=== PATIENT | male | born 1965 | race Caucasian/White ===

== ENCOUNTER 2016-11-19 10:04 | Emergency (ER) | payer OTHER ==
[~2016-11-19] VITALS: Ht 193 cm; Wt 121.8 kg
[~2016-11-19 10:04] MED LIST: ASPI81TA21 PO; CALC600T14 PO; CHOL100027 PO; IBUP-1428 PO
[2016-11-19 10:07] VITALS: Ht 193 cm; Wt 121.8 kg
[2016-11-19] MEDS ORDERED: TADA5TAB11 PO (11:03)
[2016-11-19 11:30] LABS: BASO % 0.7 %; BASO ABS # 0.03 K/uL (0-0.2); COMPLETE YES; HEMATOCRIT 40.2 % (42-52); LYMPH % 28.7 %; LYMPH ABS # 1.21 K/uL (1.2-3.4); MEAN CELL VOLUME 79.9 fL (80-100); MEAN CORPUSCULAR HEMOGLOBIN 28.2 pg (25-34); MEAN CORPUSCULAR HGB CONC 35.3 g/dl (32-36); MEAN PLATELET VOLUME 9.5 fL (7.4-10.4); MONO % 15.4 %; NEUT % 50.2 %; PLATELET COUNT 183 K/uL (130-400); RED BLOOD COUNT 5.03 M/uL (4.7-6.1); WHITE BLOOD COUNT 4.21 K/uL (4.8-10.8)
[2016-11-19] MEDS ORDERED: SODIUM CHLORIDE 0.9% 1000ML 1,000 ML IV STA (11:30)
[2016-11-19] MEDS ORDERED: OPTIRAY 320 IV PRN (11:30)
[2016-11-19 11:54] LABS: BLOOD UREA NITROGEN 15 mg/dl (7-18); BUN/CREATININE RATIO 15.5 (10-20); CALCIUM 8.7 mg/dl (8.5-10.1); CARBON DIOXIDE 27 mmol/L (21-32); CHLORIDE 106 mmol/L (98-107); CREATININE 0.99 mg/dl (0.60-1.40); GLUCOSE 84 mg/dl (70-99); POTASSIUM 3.6 mmol/L (3.5-5.1); SODIUM 141 mmol/L (136-145)
[2016-11-19 11:56] LABS: ALKALINE PHOSPHATASE 46 U/L (45-117); ALT/SGPT 30 U/L (12-78); AST/SGOT 20 U/L (15-37)
--- NOTE | 2016-11-19 13:31 | DIAGNOSTIC IMAGING REPORT ---
ABDOMEN AND PELVIS CT WITH IV CONTRAST CT DOSE: 1119.04 mGy.cm HISTORY: nausea, difficulty with BM, distended. ?obs, enteritis TECHNIQUE: Multiaxial CT images of the abdomen and pelvis were performed following the use of intravenous contrast. COMPARISON STUDY: None. FINDINGS: Groundglass opacities within the lungs posteriorly favor mild dependent change. There are trace bilateral pleural effusions. No pneumoperitoneum. No pneumatosis. There are few small sclerotic foci within the sacrum and left posterior iliac bone. These favor bone islands. Small hiatus hernia. The liver, gallbladder, adrenal glands, and pancreas are unremarkable. Small hiatus hernia. There are few subcentimeter hypodense lesions within the kidneys with the largest in the right kidney measuring 9 mm. These are too small to characterize. There are few punctate bilateral renal calculi. No right-sided hydronephrosis. Mild fullness within the left renal collecting system without gaurav hydronephrosis. The ureters are normal in course and caliber. The bladder is unremarkable. No bowel wall thickening or obstruction. Normal appendix. The spleen is enlarged measuring 15 cm in length. No retroperitoneal lymphadenopathy. Within the left central mesentery there is a slightly heterogeneous well-circumscribed 7.5 x 7.0 cm soft tissue mass. This is surrounded by a few loops of small bowel. However, this does not result in an obstruction. IMPRESSION: 1. Within the left central mesentery there is a slightly heterogeneous well-circumscribed 7.5 x 7.0 cm soft tissue mass. This could represent a GI stromal tumor versus an enlarged lymph node. Surgical consultation is recommended for further evaluation. 2. Splenomegaly. 3. Trace bilateral pleural effusions. 4. Bilateral nephrolithiasis. There is mild fullness within the left renal collecting system without hydronephrosis. There are no ureteral calculi. Electronically signed by: Fransico Walker M.D. 11/19/2016 1:30 PM Dictated Date/Time: 11/19/2016 1:17 PM
[2016-11-19 13:58] LABS: URINE APPEARANCE CLEAR (CLEAR); URINE BILIRUBIN NEG (NEG); URINE COLOR YELLOW; URINE EPITHELIAL CELL AUTO 0-5 /lpf (0-5); URINE NITRITE NEG (NEG); URINE SPECIFIC GRAVITY > 1.045 (1.000-1.030); UROBILINOGEN NEG (NEG); ZZUR CULT IF INDIC CLEAN CATCH NO
[2016-11-19 14:00] LABS: MANUAL MICROSCOPIC REQUIRED? NO; REVIEW REQ? NO
[2016-11-19 15:24] VITALS: BP 161/90; PULSE 85; TEMP 36.7; O2SAT 96
--- NOTE | 2016-11-19 17:24 | EMERGENCY ROOM VISIT NOTE ---
History Report prepared by Irena: Yadira Aguilar Under the Supervision of: Dr. Tanvir Downey M.D. First contact with patient: 10:57 Chief Complaint: GI ASSESSMENT Stated Complaint: BOWEL BLOCKAGE Nursing Triage Summary: Pt c/o n/v since Saturday. Distended and bloated when he eats. c/o constipation and diarrhea. Went to [employer], concerned about blockage. History of Present Illness The patient is a 51 year old male who presents to the Emergency Room with complaints of persistent lower abdominal pain which started 3 days ago. It does not radiate through his back. He reports that he vomited on Saturday which concerned him. He reports that he felt better on Saturday and tried to eat, but ended up distended and uncomfortable. He called a [facility] nurse yesterday who suggested that he visit an urgent care. Upon visiting urgent care, they suggested he visit the ED. The patient reports that he had a bowel movement upon arrival to the ED and now feels less discomfort. He reports that he experienced nausea, diarrhea, fever, and chills throughout the weekend. He reports that he is currently not feeling any nausea and feels hungry. He denies having had any abdominal surgeries before. He states that he has had no sick contacts or international travel. Pt denies LOC, headache, diaphoresis, visual changes, neck pain, chest pain, breathing difficulties, back pain, melena, hematochezia, urinary symptoms, numbness, weakness, lymphadenopathy, rash, or other complaints. Source of History: patient Onset: 3 days ago Position: abdomen (lower) Timing: other (persistent) Modifying Factors (Relieving): defecation Associated Symptoms: + chills, + diarrhea, + fevers, + nausea Review of Systems See HPI for pertinent positives and negatives. A total of ten systems were reviewed and were otherwise negative. Past Medical & Surgical Medical Problems: (1) Sciatica Family History Cancer Diabetes mellitus Heart disease Social History Smoking Status: Never Smoker Marital Status: Occupation Status: employed Current/Historical Medications Scheduled Tadalafil (Cialis), 5 MG PO UD Allergies Coded Allergies: No Known Allergies (Unverified , 11/19/16) Physical Exam Vital Signs Date Time Temp Pulse Resp B/P Pulse Ox O2 Delivery O2 Flow Rate FiO2 11/19/16 15:24 36.7 85 20 161/90 96 2/20/17 13:10 72 16 164/91 98 Room Air 11/19/16 12:09 70 11/19/16 11:41 66 20 151/98 98 Room Air 11/19/16 10:07 37.3 76 18 137/90 97 Room Air Physical Exam GENERAL: Awake, alert, well-appearing, in no distress HENT: Normocephalic, atraumatic. Oropharynx unremarkable. EYES: Normal conjunctiva. Sclera non-icteric. NECK: Supple. No nuchal rigidity. FROM. No JVD. RESPIRATORY: Clear to auscultation. CARDIAC: Regular rate, normal rhythm. Extremities warm and well perfused. Pulses equal. ABDOMEN: Soft, non-distended. LLQ tenderness to palpation. No rebound or guarding. No masses. RECTAL: Deferred. MUSCULOSKELETAL: Chest examination reveals no tenderness. The back is symmetrical on inspection without obvious abnormality. There is no CVA tenderness to palpation. No joint edema. LOWER EXTREMITIES: Calves are equal size bilaterally and non-tender. No edema. No discoloration. NEURO: Normal sensorium. No sensory or motor deficits noted. SKIN: No rash or jaundice noted. Medical Decision & Procedures ER Provider Diagnostic Interpretation: Radiology results as stated below per my review and radiologist interpretation. ABDOMEN AND PELVIS CT WITH IV CONTRAST CT DOSE: 1119.04 mGy.cm HISTORY: nausea, difficulty with BM, distended. ?obs, enteritis TECHNIQUE: Multiaxial CT images of the abdomen and pelvis were performed following the use of intravenous contrast. COMPARISON STUDY: None. FINDINGS: Groundglass opacities within the lungs posteriorly favor mild dependent change. There are trace bilateral pleural effusions. No pneumoperitoneum. No pneumatosis. There are few small sclerotic foci within the sacrum and left posterior iliac bone. These favor bone islands. Small hiatus hernia. The liver, gallbladder, adrenal glands, and pancreas are unremarkable. Small hiatus hernia. There are few subcentimeter hypodense lesions within the kidneys with the largest in the right kidney measuring 9 mm. These are too small to characterize. There are few punctate bilateral renal calculi. No right-sided hydronephrosis. Mild fullness within the left renal collecting system without gaurav hydronephrosis. The ureters are normal in course and caliber. The bladder is unremarkable. No bowel wall thickening or obstruction. Normal appendix. The spleen is enlarged measuring 15 cm in length. No retroperitoneal lymphadenopathy. Within the left central mesentery there is a slightly heterogeneous well-circumscribed 7.5 x 7.0 cm soft tissue mass. This is surrounded by a few loops of small bowel. However, this does not result in an obstruction. IMPRESSION: 1. Within the left central mesentery there is a slightly heterogeneous well-circumscribed 7.5 x 7.0 cm soft tissue mass. This could represent a GI stromal tumor versus an enlarged lymph node. Surgical consultation is recommended for further evaluation. 2. Splenomegaly. 3. Trace bilateral pleural effusions. 4. Bilateral nephrolithiasis. There is mild fullness within the left renal collecting system without hydronephrosis. There are no ureteral calculi. Electronically signed by: Fransico Walker M.D. 11/19/2016 1:30 PM Dictated Date/Time: 11/19/2016 1:17 PM Laboratory Results 11/19/16 11:14 Red Blood Count 5.03, Mean Corpuscular Volume 79.9, Mean Corpuscular Hemoglobin 28.2, Mean Corpuscular Hemoglobin Concent 35.3, Mean Platelet Volume 9.5, Neutrophils (%) (Auto) 50.2, Lymphocytes (%) (Auto) 28.7, Monocytes (%) (Auto) 15.4, Eosinophils (%) (Auto) 5.0, Basophils (%) (Auto) 0.7, Neutrophils # (Auto ) 2.11, Lymphocytes # (Auto) 1.21, Monocytes # (Auto) 0.65, Eosinophils # (Auto ) 0.21, Basophils # (Auto) 0.03 11/19/16 11:14 Test 11/19/16 11:14 11/19/16 13:05 White Blood Count 4.21 K/uL (4.8-10.8) Red Blood Count 5.03 M/uL (4.7-6.1) Hemoglobin 14.2 g/dL (14.0-18.0) Hematocrit 40.2 % (42-52) Mean Corpuscular Volume 79.9 fL (80-100) Mean Corpuscular Hemoglobin 28.2 pg (25-34) Mean Corpuscular Hemoglobin Concent 35.3 g/dl (32-36) Platelet Count 183 K/uL (130-400) Mean Platelet Volume 9.5 fL (7.4-10.4) Neutrophils (%) (Auto) 50.2 % Lymphocytes (%) (Auto) 28.7 % Monocytes (%) (Auto) 15.4 % Eosinophils (%) (Auto) 5.0 % Basophils (%) (Auto) 0.7 % Neutrophils # (Auto) 2.11 K/uL (1.4-6.5) Lymphocytes # (Auto) 1.21 K/uL (1.2-3.4) Monocytes # (Auto) 0.65 K/uL (0.11-0.59) Eosinophils # (Auto) 0.21 K/uL (0-0.5) Basophils # (Auto) 0.03 K/uL (0-0.2) RDW Standard Deviation 41.5 fL (36.4-46.3) RDW Coefficient of Variation 14.3 % (11.5-14.5) Immature Granulocyte % (Auto) 0.0 % Immature Granulocyte # (Auto) 0.00 K/uL (0.00-0.02) Anion Gap 8.0 mmol/L (3-11) Est Creatinine Clear Calc Drug Dose 125.8 ml/min Estimated GFR () 101.8 Estimated GFR (Non- 87.8 BUN/Creatinine Ratio 15.5 (10-20) Calcium Level 8.7 mg/dl (8.5-10.1) Total Bilirubin 0.5 mg/dl (0.2-1) Direct Bilirubin < 0.1 mg/dl (0-0.2) Aspartate Amino Transf (AST/SGOT) 20 U/L (15-37) Alanine Aminotransferase (ALT/SGPT) 30 U/L (12-78) Alkaline Phosphatase 46 U/L (45-117) Total Protein 7.4 gm/dl (6.4-8.2) Albumin 3.7 gm/dl (3.4-5.0) Lipase 120 U/L (73-393) Urine Color YELLOW Urine Appearance CLEAR (CLEAR) Urine pH 7.0 (4.5-7.5) Urine Specific Halfway > 1.045 (1.000-1.030) Urine Protein NEG (NEG) Urine Glucose (UA) NEG (NEG) Urine Ketones NEG (NEG) Urine Occult Blood 1+ (NEG) Urine Nitrite NEG (NEG) Urine Bilirubin NEG (NEG) Urine Urobilinogen NEG (NEG) Urine Leukocyte Esterase NEG (NEG) Urine WBC (Auto) 1-5 /hpf (0-5) Urine RBC (Auto) 0-4 /hpf (0-4) Urine Hyaline Casts (Auto) 0 /lpf (0-5) Urine Epithelial Cells (Auto) 0-5 /lpf (0-5) Urine Bacteria (Auto) NEG (NEG) Laboratory results reviewed by me Medications Administered Medications (Trade) Dose Ordered Sig/Jia Route Start Time Stop Time Status Last Admin Dose Admin Sodium Chloride (Nss 1000ml) 1,000 ml @ 999 mls/hr Q1H1M STAT IV 11/19/16 11:30 11/19/16 12:30 DC 11/19/16 11:44 999 MLS/HR ED Course 1126: The patient was evaluated in room C11. A complete history and physical exam was performed. 1130: Ordered NSS 1000 ml @ 999 mls/hr IV. 1337: I discussed the patient's case with Dr. Vance, General Surgery. He will look at the CT and call back. 1345: I spoke with Dr. aVnce. He recommends I consult with surgical oncology at [facility]. 1348: I reevaluated the patient. 1402: I spoke with Dr. Ovalle, [facility] Surgical Oncology. 1424: I spoke with Dr. Razo, [facility] Gastroenterology. The patient can follow in the office. 1432: I reevaluated the patient. Discussed results and discharge instructions: He verbalized understanding and agreement. The patient is ready for discharge. Medical Decision Triage Nursing notes reviewed. The patient's presentation and history were concerning for GI symptoms and abdominal bloating. Etiologies such as appendicitis, diverticulitis, obstruction, inflammatory bowel disease, renal colic, PUD, biliary pathology, pancreatitis, mesenteric ischemia, aortic pathology, infections, genitourinary, UTI, perforated viscus, as well as others were entertained. The patient was evaluated. He had some mild left lower tenderness. Clinically he was doing well. He did have a bowel movement that felt normal to him and his distention was improved with this upon arrival. The patient had an unremarkable CBC and chemistry panel. Urinalysis LFTs and lipase were unremarkable as well. CT imaging revealed the findings above. The patient had a sizable tumor noted in the abdomen. I discussed this with Dr. Vance general surgery. He recommended consultation with surgical pathology at [place]. I did discuss this with the patient and he was in agreement. I did discuss the case with Dr. Bentley. She asked if GI could be consulted for possible EUS biopsy. I did discuss case with Dr. Razo and the patient could be seen in the office and set up for this procedure. The patient's information was also coordinated with surgical oncology's foster care therapist, Bhumi Zarco. The patient was given all relevant information. His imaging was sent to [place] and the patient was also given a copy of his imaging on disc. By the evaluation outlined above other emergent etiologies such as those listed in the differential, as well as others, were deemed relatively unlikely. The patient was informed about the findings as listed above. All questions were answered and he was pleased with the treatment. Return instructions were outlined and the patient was discharged in stable condition. The patient was referred to [facility] gastroenterology and surgical oncology for follow-up for a recheck of the current condition. The chart was completed utilizing [employer] Speech voice recognition software. Grammatical errors, random word insertions, pronoun errors, and incomplete sentences are an occasional consequence of this system due to software limitations, ambient noise, and hardware issues. Any formal questions or concerns about the content, text, or information contained within the body of this dictation should be directly addressed to the physician for clarification. Consults Time Called: 1333 Consulting Physician: Dr. Vance, General Surgery Returned Call: 1339 I discussed the patient's case. He will look at the CT and call back. He called back at 1345. He recommends I consult with surgical oncology at [facility] Additional Consults: Time Called: 1352 Consulted Physician: Dr. Ovalle, [facility] Surgical Oncology Returned Call: [phone] Additional Comments: I spoke with Dr. Ovalle, [facility] Surgical Oncology. Time Called: 1423 Consulted Physician: Dr. Razo, [facility] Gastroenterology Returned Call: [phone] Additional Comments: I spoke with Dr. Razo. The patient can follow in the office. Impression Primary Impression: Lower abdominal pain Additional Impression: Abdominal mass Scribe Attestation The scribe's documentation has been prepared under my direction and personally reviewed by me in its entirety. I confirm that the note above accurately reflects all work, treatment, procedures, and medical decision making performed by me. Departure Information Dispostion Home / Self-Care Referrals Rick Pat M.D. (PCP) Louisa Razo M.D. Patient Instructions My [facility] Additional Instructions Follow-up with [facility] gastroenterology as discussed. Call the office today or first thing tomorrow morning for an appointment with Dr. Razo. Tell the cake maker he is aware and will see you in the office. A follow-up with [facility] surgery was set. If you do not hear from the office in the next 48 hours call [place] at [phone] Bentley's clinic. Her coordinator, Bhumi Zarco has your information. Ibuprofen(Motrin, Advil) may be used for fever or pain. Use 600mg every six hours as needed. Take with food. Avoid using more than 2400mg in a 24 hour period. Do not use 2400mg per day for more than three consecutive days without physician direction. Prolonged inappropriate use can lead to stomach upset or ulcers. (AND/OR) Acetaminophen(Tylenol) may be used for fever or pain. Use 1000mg every six hours as needed. Avoid using more than 4000mg in a 24 hour period. Rest and drink plenty of fluids as tolerated. Slow sips of water or sports drinks are recommended instead of large amounts all at once. Continue current medications. Once your stomach is settled start with a clear liquid diet (jello, soup broth, etc.) and then advance as tolerated. You should avoid full, heavy meals for about 24 hrs from the time your symptoms resolved. Return to the ER immediately for worsening or persistent abdominal pain, vomiting, fevers, chest pains, difficulty breathing, black or bloody stools, worsening of your condition, or as needed. Problem Qualifiers
== END 2016-11-19 15:26 | disposition home or self-care (01) ==
LOC: C.EDB 10:05 → C.EDC 15:26
DX: R10.30 Lower abdominal pain, unspecified (principal); R19.09 Other intra-abdominal and pelvic swelling, mass and lump; Z83.3 Family history of diabetes mellitus; Z79.899 Other long term (current) drug therapy

== ENCOUNTER 2016-11-26 08:53 | Day surgery (SDC) | payer OTHER ==
[2016-11-21 18:42] LABS: PARTIAL THROMBOPLASTIN RATIO 1.1; PROTHROMBIN TIME (PATIENT) 11.1 SECONDS (9.0-12.0)
[~2016-11-26] VITALS: Ht 193 cm; Wt 120.5 kg
[2016-11-26] VITALS (7 sets, daily range): BP systolic 119–177; BP diastolic 74–106; PULSE 66–79; TEMP 36.5–36.8; O2SAT 97–99; Ht 193 cm; Wt 120.5 kg
[~2016-11-26 08:53] MED LIST changes: -ASPI81TA21 PO; -CALC600T14 PO; -CHOL100027 PO; -IBUP-1428 PO; +TADA5TAB11 PO
[2016-11-26] MEDS ORDERED: CALC500C70 PO (09:18)
[2016-11-26] MEDS ORDERED: OMEP20CA59 PO (09:18)
[2016-11-26] MEDS ORDERED: POLY335019 PO (09:35)
--- NOTE | 2016-11-26 10:54 | Discharge Instructions ---
Discharge Instructions Procedure Procedure Date: Nov 26, 2016. Reason for visit: Abd Mass * To Do. Discharge Discharge Date: Nov 26, 2016. Discharge Diagnosis: Abd Mass Instructions Activity Recommendations: 1 Day-May resume regular activity Return to School/Work: no limitations Recommended Home Diet: Resume Previous Diet Allergies Coded Allergies: No Known Allergies (Unverified , 11/26/16) Ame Arguelles Recommendations: Call your doctor if: * Temperature above 101 degrees * Pain not relieved by pain medicine ordered * There is increased drainage or redness from any incision * You have any unanswered questions or concerns. Your Doctors Instructions noted above were prepared by provider Ko Mcmullen. Patient Signature Section: Patient Instructions Signature Page Butch Sanchez Patient (or Guardian) Signature/Date: I have read and understand the instructions given to me by my caregivers. Caregiver/RN/Doctor Signature/Date: The above-named patient and/or guardian has received patient instructions on this date. + Original Patient Signature Page (only) stays with chart. Please make copy for patient.
--- NOTE | 2016-11-26 11:09 | DIAGNOSTIC IMAGING REPORT ---
CT GUIDED FINE-NEEDLE ASPIRATION BIOPSY OF A LEFT-SIDED ABDOMINAL MASS CT DOSE: 600.66 mGycm CLINICAL HISTORY: Left-sided abdominal mass TECHNIQUE: The risks of the procedure were explained the patient and informed consent was obtained. Patient was prepped and draped in sterile fashion. The skin was anesthetized with 1% lidocaine. The patient left-sided abdominal mass was localized utilizing CT scanning and a cutaneous grade. 2 passes into the mass were obtained utilizing a 22-gauge Jami needle. COMPARISON STUDY: 11/19/2016 FINDINGS: Initial pathologic review revealed blood and mesothelial cells. There are no findings to indicate lymphoma, melanoma, or adenocarcinoma. The pathologist felt that obtaining a core biopsy was unlikely to change clinical management. No further samples were therefore obtained. IMPRESSION: Successful ultrasound-guided fine-needle aspiration biopsy of a left-sided abdominal mass. Final pathology is pending at this time. Electronically signed by: Ko Mcmullen M.D. 11/26/2016 11:08 AM Dictated Date/Time: 11/26/2016 11:05 AM
== END 2016-11-26 13:00 | disposition home or self-care (01) ==
LOC: C.ACU 08:53
PROVIDERS: ATTEND Internal Medicine Gastroenterology
DX: R22.2 Localized swelling, mass and lump, trunk (principal)

== ENCOUNTER → 2017-01-16 | Outpatient (CLI) | payer OTHER ==
[~2017-01-16] MED LIST changes: +CALC500C70 PO; +OMEP20CA59 PO; +POLY335019 PO
== END | disposition home or self-care (01) ==
LOC: C.LABBC 08:27
PROVIDERS: ATTEND Nurse Practitioner Adult Health
DX: N40.1 Benign prostatic hyperplasia with lower urinary tract symptoms (principal)

== ENCOUNTER → 2018-01-16 | Outpatient (CLI) | payer OTHER | END | disposition home or self-care (01) | LOC: C.LABBC 08:39 | PROVIDERS: ATTEND Urology | DX: N52.9 Male erectile dysfunction, unspecified (principal) ==